=== PATIENT | female | born 1955 | race Caucasian/White ===

== ENCOUNTER 2017-06-08 20:49 | Emergency (ER) | payer OTHER ==
[~2017-06-08] VITALS: Ht 162.6 cm; Wt 59.9 kg
[2017-06-08] MEDS ORDERED: IBUPROFEN200 M1 PO (21:08)
[2017-06-08] MEDS ORDERED: FISH OIL 1,001000 M2 PO (21:08)
[2017-06-08] MEDS ORDERED: MULTI-DAY VITA1 EACH PO (21:08)
[2017-06-08] MEDS ORDERED: CITRUS CALCIUM1 EAC1 PO (21:09)
[2017-06-08] MEDS ORDERED: ASPIRIN81 M2 PO (21:10)
[2017-06-08] MEDS ORDERED: HYDROCODONE-AP1 EAC6 PO (22:34)
[2017-06-08 23:22] VITALS: BP 116/67
== END 2017-06-08 23:22 | disposition home or self-care (01) ==
LOC: ER 20:49
DX: S92.061A Displaced intraarticular fracture of right calcaneus, initial encounter for closed fracture (principal); W10.9XXA Fall (on) (from) unspecified stairs and steps, initial encounter; Y93.89 Activity, other specified; Y92.89 Other specified places as the place of occurrence of the external cause; Y99.8 Other external cause status